=== PATIENT | male | born 1950 | race Caucasian/White ===

== ENCOUNTER 2017-02-12 07:51 | Day surgery (SDC) | payer MEDICARE, BC ==
[~2017-02-12 07:51] MED LIST: ASPIRIN325 M3 PO; BISOPROLOL-HCT1 EAC2 PO; IBUPROFEN200 M3 PO; PERCOCET 5-3251 EACH PO; SENOKOT-S TABL1 EACH PO; ZOCOR20 M1 PO; ZOFRAN ODT4 MG PO; ZOFRAN ODT4 MG PO/SL
[2017-02-12 08:38] LABS: ANION GAP 11 mmol/L (0-20); BLOOD UREA NITROGEN 14 mg/dl (6-24); CALCIUM 10.9 mg/dl (8.5-10.5); CARBON DIOXIDE-VENOUS 26 mmol/L (22-32); CHLORIDE 106 mmol/l (96-110); CREATININE 1.01 mg/dl (0.60-1.30); GLUCOSE 107 mg/dL (70-110); POTASSIUM 3.8 mmol/L (3.7-5.1); SODIUM 139 mmol/L (135-145); eGFR VALUE FOR BLACK 89 mL/Min
== END 2017-02-12 11:45 ==
LOC: ENDOS 07:51 → SHSC 07:53
PROVIDERS: Colon & Rectal Surgery
PROC: 0DJD8ZZ Inspection of Lower Intestinal Tract, Via Natural or Artificial Opening Endoscopic (ICD-10-PCS; principal; 2017-02-12)
DX: K63.89 Other specified diseases of intestine (principal); K57.30 Diverticulosis of large intestine without perforation or abscess without bleeding; I10 Essential (primary) hypertension; Z87.442 Personal history of urinary calculi; Z90.49 Acquired absence of other specified parts of digestive tract; Z86.010 Personal history of colon polyps; Z79.899 Other long term (current) drug therapy